=== PATIENT | male | born 1925 | race Caucasian/White ===

== ENCOUNTER 2016-11-24 12:48 | Inpatient (IN) ==
[2016-11-24] MEDS: Nitroglycerin 0.4 MG TAB.SUBL SL PRN ×2 (16:12→16:23)
--- NOTE | 2016-11-24 16:34 | Internal Med History&Physical ---
Date of Encounter: 11/24/16 Time of Encounter: 16:30 Assessment and Plan (1) Non-STEMI (non-ST elevated myocardial infarction) Current visit: Yes Status: Acute Diagnosis based on typical sudden onset precordial chest pain which initially improved with nitroglycerin however was recurrent and not completely relieved as well as borderline elevated troponin. We administered 2 sublingual nitroglycerin tablets at bedside and his blood pressure came down to the normal range. His chest pain has improved but it is not completely relieved. We will start heparin drip. Will obtain stat troponin and trend every 6 hours. Consult cardiology for possible need for heart catheterization tomorrow. Continue with aspirin and metoprolol and statin. Continue nitroglycerin sublingual. Will obtain echocardiogram. High risk for morbidity, mortality and complications due to IV heparin drip which requires frequent monitoring of blood coagulation parameters. (2) Essential hypertension Current visit: Yes Status: Acute Continue with atenolol. We will add hydralazine for uncontrolled hypertension. (3) Hyperlipidemia Current visit: Yes Status: Acute We will check lipid panel. Qualifiers: Hyperlipidemia type: unspecified Qualified Code(s): E78.5 - Hyperlipidemia , unspecified (4) BPH (benign prostatic hyperplasia) Current visit: Yes Status: Acute Continue finasteride. Qualifiers: Lower urinary tract symptom presence: symptoms absent Qualified Code(s): N40.0 - Benign prostatic hyperplasia without lower urinary tract symptoms (5) Chronic kidney disease, stage III (moderate) Current visit: Yes Status: Acute Per chart review baseline creatinine between 1.4 and 1.5 with GFR in the mid to high 40s. I will provide IV fluid hydration in anticipation of iodine contrast load tomorrow. Avoid nephrotoxins. Hold EITAN inhibitor and ARB for now due to use of contrast. 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 Pain started suddenly at 1:00 this morning, graded as 4/10 in intensity, aching, precordial, no irradiation. No aggravating or alleviating factors. Not associated with diaphoresis or shortness of breath or lightheadedness. Workup at [facility] revealed an elevated troponin of 0.04. The patient was transferred to us for further care. Past medical history: Essential hypertension Surgical history: Cystoscopy Family history: Both parents suffered with CAD in their 70s. 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 Past Med Surg Social Fam HX - Past Medical History Medical history: atrial fibrillation, hypertension Psychiatric history: no psych history - Social History Smoking Status: Never smoker Smokeless Tobacco Status: No Alcohol use: none Drug use: none - Family History Father Living Status: Mother Living Status: Internal Medicine - H&P: Meds Atenolol [Tenormin] 25 mg PO BID 07/05/16 [History] Aspirin Enteric Coated [Aspirin EC] 81 mg PO QAM 11/24/16 [History] Finasteride [Proscar] 5 mg PO QAM 11/24/16 [History] Lisinopril [Zestril] 40 mg PO QAM 11/24/16 [History] Lovastatin 80 mg PO QPM 11/24/16 [History] Nitroglycerin [Nitrostat] 0.4 mg SL Q5M PRN 11/24/16 [History] 3 Allergy/AdvReac Type Severity Reaction Status Date / Time No Known Allergies Allergy Verified 07/05/16 14:03 All Systems PM: A 10-system review of systems was performed and is negative for pertinent findings except as documented above in the HPI. - Constitutional Vitals: Temp Pulse Resp BP Pulse Ox 98.0 F 64 16 172/85 98 11/24/16 14:41 11/24/16 14:41 11/24/16 14:41 11/24/16 16:27 11/24/16 14:41 General appearance: Present: A&O X 3, no acute distress - Eye Eye exam: Present: PERRL, conjuntiva pink, sclera anicteric Pupils: Present: PERRL - Respiratory Respiratory exam: Present: CTAB. Absent: accessory muscle use, rales, rhonchi, wheezes - Cardiovascular Cardiovascular exam: Present: RRR, +S1, +S2. Absent: diastolic murmur, gallop, rubs, systolic murmur Additional comments: Pacemaker is palpated over the left upper chest - GI/Abdominal GI/Abdominal exam: Present: normal bowel sounds, soft, no peritoneal signs. Absent: distended, tenderness - Extremities Exam Extremities exam: Present: warm, radial pulses palpable and symmetrical. Absent : calf tenderness, cyanotic, pedal edema - Neurological Exam Neurological exam: Present: CN II-XII intact, oriented X3, no focal deficits. Absent: facial droop, speech deficit - Skin Skin exam: Present: dry, intact Internal Med - H&P Results - Labs Labs: Lab work from [facility] from 11/24/2016: Blood cell count 7.5, hemoglobin 14.5, platelet count 188. Chemistries sodium 143 potassium 4.2, chloride 107, CO2 25, BUN 24, creatinine 1.43 Troponin 0.04. Chest x-ray from [facility] done today: No acute process. - EKG Data -: EKG Interpreted by Myself (Ventricularly paced rhythm at 74 bpm)
[2016-11-24] MEDS ORDERED: Nitroglycerin 0.4 MG TAB.SUBL SL PRN (16:57)
[2016-11-24] MEDS ORDERED: *HR* HYDROcodone/Acet 5/325 mg TABLET PO PRN (16:58)
[2016-11-24] MEDS ORDERED: Acetaminophen 325 MG TABLET PO PRN (16:58)
[2016-11-24] MEDS ORDERED: *HR* Morphine 2 MG/ML SYRINGE IVP PRN (16:58)
[2016-11-24] MEDS ORDERED: Ondansetron 4 MG/2 ML VIAL IVP PRN (16:58)
[2016-11-24] MEDS ORDERED: Naloxone 0.4 MG/ML INJ IVP PRN (16:58)
[2016-11-24] MEDS ORDERED: Finasteride 5 MG TABLET PO SCH (17:00)
[2016-11-24] MEDS ORDERED: 0.9 % Sodium Chloride 1,000 ML IVC SCH (17:00)
[2016-11-24] MEDS ORDERED: *HR* Heparin 5,000 UNIT/ML VIAL IVP PRN ×2 (17:06)
[2016-11-24] MEDS ORDERED: *HR* Heparin 5,000 UNIT/ML VIAL IVP ONE (17:06)
[2016-11-24] MEDS ORDERED: Heparin 25,000 UNIT/500 ML D5W 25,000 UNIT/500 ML MLS IVC SCH (17:15)
[2016-11-24 18:24] LABS: Hematocrit 42.5 % (37.5-50.1); Hemoglobin 13.7 g/dL (12.9-16.9); Mean Corpuscular HGB Conc 32.2 g/dL (31.6-35.5); Mean Platelet Volume 10.5 fL (9.4-12.4); Platelet Count 177 K/mcL (140-400); Red Blood Count 4.57 M/mcL (4.19-5.50); Red Cell Distribution Width 12.9 % (11.5-14.5)
[2016-11-24 18:28] LABS: INR 1.1; Prothrombin Time 11.9 Seconds (9.4-12.1)
[2016-11-24 18:31] LABS: Activated Partial Thrombo Time 28.6 Seconds (26.0-36.0)
[2016-11-25 01:06] LABS: Basophils # 0.1 K/mcL (0.0-0.2); Basophils % 0.6 %; Eosinophils # 0.1 K/mcL (0.0-0.6); Eosinophils % 1.3 %; Hematocrit 41.1 % (37.5-50.1); Hemoglobin 13.4 g/dL (12.9-16.9); Immature Granulocytes % 0.5 % (0-4); Lymphocytes # 1.9 K/mcL (0.6-4.6); Lymphocytes % 23.2 %; Mean Corpuscular HGB Conc 32.6 g/dL (31.6-35.5); Mean Corpuscular Hemoglobin 30.5 pg (28.0-33.3); Mean Corpuscular Volume 93.6 fL (83.0-100.0); Mean Platelet Volume 10.8 fL (9.4-12.4); Monocytes # 0.7 K/mcL (0.0-1.3); Monocytes % 9.1 %; Neutrophils # 5.3 K/mcL (1.6-8.9); Platelet Count 166 K/mcL (140-400); Red Blood Count 4.39 M/mcL (4.19-5.50); Red Cell Distribution Width 12.8 % (11.5-14.5); Segmented Neutrophils % 65.3 %
[2016-11-25 01:18] LABS: BUN/Creatinine Ratio 16 (6-26); Blood Urea Nitrogen 21 mg/dL (8-26); Calcium 8.8 mg/dL (8.6-10.8); Carbon Dioxide 24 mEq/L (19-29); Chloride 110 mEq/L (98-109); Glucose 105 mg/dL (70-99); Magnesium 1.9 mg/dL (1.6-2.6); Osmolality,Calculated 301 (280-300); Potassium 4.4 mEq/L (3.5-4.5); Sodium 144 mEq/L (136-145); eGFR For African Americans > 60 (> 60); eGFR For Non-African Americans 51 (> 60)
[2016-11-25 01:28] LABS: Activated Partial Thrombo Time 153.3 Seconds (26.0-36.0)
[2016-11-25] MEDS ORDERED: Aspirin Enteric Coated 81 MG Tablet PO SCH (09:00)
--- NOTE | 2016-11-25 11:50 | Cardiology Consult Note ---
Date of Encounter: 11/25/16 Time of Encounter: 10:30 Assessment and Plan (1) Atypical chest pain Current Visit: Yes Status: Acute 89M with right sided, intermittent chest pain without radiation for the last 6 months. Equivocal troponin levels (0.05<0.04<0.04). EKG was independently read and consistent with electronic ventricular pacemaker without signs of ischemia. Previous Stress test in 2011 demonstrated stable coronary disease. Echo demonstrates EF = 60% with normal wall motion, and moderately calcified aortic valve leaflets, especially noncoronary cusp. Ischemic work-up is negative. We suspect chest discomfort likely secondary to GERD. No cardiac intervention is recommended at this time. Recommend discharging patient with Prilosec and follow up with Dr. Gooden, his pc tech. Cardiology is signing off. Thank you for the consult. (2) Essential hypertension Current Visit: No Status: Acute Patient's HTN is uncontrolled but stable ranging with systolic 150s-170s. He has been asymptomatic throughout admission. Follow-up with PCP outpatient. (3) Hyperlipidemia Current Visit: No Status: Acute Patient has history of hyperlipidemia. Continue with home meds. Follow-up with outpatient management. Qualifiers: Hyperlipidemia type: unspecified Qualified Code(s): E78.5 - Hyperlipidemia , unspecified Discussion w patient/family: The assessment and plan as outlined above was discussed with the patient and/or family members who expressed understanding and agreement. All questions were answered. Thank you for involving us in the care of your patient. Please call with any questions. History of Present Illness Consult date: 11/25/16 Consult reason: Atypical Chest pain with elevated troponin Chief complaint: Chest pain History of present illness: Mr. Bobo is a 89 year old male with PMH of HTN, previous stents x2 (2006), pacemaker (January 2010) who presents with intermittent chest pain for the last 6 months. He reports pain is on the right side of chest, does not radiate, and lasts for a few seconds at a time. The pain is pressure-like. He cannot recall anything that makes it better or worse. Has not taken any medication at home to treat the pain. Pain is 4/10 when it is present. He denies smoking, alcohol, or illicit drug. He exercises three times per week and does not experience CP or SOB with exertion. Past stress tests in 2011 demonstarted stable coronary disease. He presented to [facility] for the chest pain and was transferred to [place] due to elevated troponins. He denies fever, chills, lightheadedness, diaphoresis, SOB, cough, N/V/D/C, leg swelling. Past Med Surg Social Fam HX - Past Medical History Medical history: atrial fibrillation, hypertension Psychiatric history: no psych history - Social History Smoking Status: Never smoker Smokeless Tobacco Status: No Alcohol use: none Drug use: none - Family History Father Living Status: Mother Living Status: Medications and Allergies Atenolol [Tenormin] 25 mg PO BID 07/05/16 [History] Aspirin Enteric Coated [Aspirin EC] 81 mg PO QAM 11/24/16 [History] Finasteride [Proscar] 5 mg PO QAM 11/24/16 [History] Lisinopril [Zestril] 20 mg PO HS 11/24/16 [History] Lisinopril [Zestril] 40 mg PO QAM 11/24/16 [History] Lovastatin 80 mg PO QPM 11/24/16 [History] Nitroglycerin [Nitrostat] 0.4 mg SL Q5M PRN 11/24/16 [History] Omeprazole [PriLOSEC] 40 mg PO DAILY #30 cap 11/25/16 [Rx] 3 Allergy/AdvReac Type Severity Reaction Status Date / Time No Known Allergies Allergy Verified 07/05/16 14:03 All Systems Review: A 10-system review of systems was performed and is negative for pertinent findings except as documented above in the HPI. - Constitutional Constitutional: no chills, no fatigue, no headache(s), no night sweats - EENT Eyes: no blurred vision Nose, mouth and throat: no sore throat - Cardiovascular Cardiovascular: as per HPI, chest pain at rest, no dyspnea at rest, no dyspnea on exertion, no irregular heart rhythm, no lightheadedness, no palpitations, no syncope - Respiratory Respiratory: no cough, no dyspnea - Gastrointestinal Gastrointestinal: no abdominal pain, no constipation, no diarrhea - Genitourinary Genitourinary: no dysuria - Neurological Neurological: no abnormal speech, no syncope - Hematological/Lymphatic Hematologic/Lymphatic: no easy bleeding Physical Examination General: Conversant, No Apparent Distress HEENT: Atraumatic, Normocephaly, Mucus Membranes Moist Neck: No JVD, Normal carotid pulses Cardiac: Reg Rate and Rhythm, Normal S1 and S2, No Murmur Lungs: Normal Breath Sounds, No Wheeze, Rales, Rhonchi Neuro: Alert and responsive, No focal deficits noted Abdomen: Soft, Non-Tender Skin: No rashes noted on visualized skin Musculoskeletal: No Chest Wall Tenderness Extremities: No Clubbing, No Cyanosis, No Edema, Normal Pulses Results 11/25/16 00:33 11/25/16 00:33 Lab Results 11/24/16 11/24/16 11/24/16 17:57 17:57 17:57 WBC 7.5 Hgb 13.7 Hct 42.5 Plt Count 177 INR 1.1 APTT 28.6 Sodium Potassium Chloride Carbon Dioxide BUN Creatinine Glucose Calcium Magnesium Troponin I 0.04 H* B-Natriuretic Peptide 11/25/16 11/25/16 11/25/16 00:33 00:33 00:33 WBC 8.2 Hgb 13.4 Hct 41.1 Plt Count 166 INR APTT 153.3 H* D Sodium Potassium Chloride Carbon Dioxide BUN Creatinine Glucose Calcium Magnesium Troponin I 0.05 H* B-Natriuretic Peptide 11/25/16 11/25/16 11/25/16 00:33 00:33 08:40 WBC Hgb Hct Plt Count INR APTT 79.2 H Sodium 144 Potassium 4.4 Chloride 110 H Carbon Dioxide 24 BUN 21 Creatinine 1.33 H Glucose 105 H Calcium 8.8 Magnesium 1.9 Troponin I B-Natriuretic Peptide 187 H Consult Discharge Plan - Plan Additional Instructions: follow up with your PCP take prilosec everyday return to hospital should you develop chest pain, shortness of breathe, diaphoresis, nausea, vomiting Referrals: Oli Shoemaker MD [Primary Care Provider] - 12/01/16 3:30 pm Dami Gooden MD [Partnered Physician] - 02/05/17 9:00 am Prescriptions: Omeprazole [PriLOSEC] 40 mg PO DAILY #30 cap
[2016-11-25 12:13] VITALS: BP 179/76
--- NOTE | 2016-11-25 13:21 | Discharge Summary ---
<Huong Meek - Last Filed: 11/25/16 15:49> Date of Encounter: 11/25/16 Time of Encounter: 13:18 - Discharge Diagnosis (1) Non-STEMI (non-ST elevated myocardial infarction) Priority: Primary Status: Acute (2) Essential hypertension Priority: Secondary Status: Acute (3) Hyperlipidemia Priority: Secondary Status: Acute Qualifiers: Hyperlipidemia type: unspecified Qualified Code(s): E78.5 - Hyperlipidemia , unspecified (4) BPH (benign prostatic hyperplasia) Priority: Secondary Status: Acute Qualifiers: Lower urinary tract symptom presence: symptoms absent Qualified Code(s): N40.0 - Benign prostatic hyperplasia without lower urinary tract symptoms (5) Chronic kidney disease, stage III (moderate) Priority: Secondary Status: Acute - Discharge Medications Prescriptions: Omeprazole [PriLOSEC] 40 mg PO DAILY #30 cap Home Medications: Atenolol [Tenormin] 25 mg PO BID 07/05/16 [History] Aspirin Enteric Coated [Aspirin EC] 81 mg PO QAM 11/24/16 [History] Finasteride [Proscar] 5 mg PO QAM 11/24/16 [History] Lisinopril [Zestril] 20 mg PO HS 11/24/16 [History] Lisinopril [Zestril] 40 mg PO QAM 11/24/16 [History] Lovastatin 80 mg PO QPM 11/24/16 [History] Nitroglycerin [Nitrostat] 0.4 mg SL Q5M PRN 11/24/16 [History] Omeprazole [PriLOSEC] 40 mg PO DAILY #30 cap 11/25/16 [Rx] Allergies/Adverse Reactions: 3 Allergy/AdvReac Type Severity Reaction Status Date / Time No Known Allergies Allergy Verified 07/05/16 14:03 Procedures/tests Complete & Pending: Procedures Performed prior 72 hours Category Date Time Status EV echocardiogram Routine Y 11/25/16 17:04 Completed Date of admission: 11/24/16 16:58 Primary care physician: Oli Shoemaker MD Consults: 11/24/16 17:00 Consult to Physician [CONS] Routine Consulting Provider: Angel Wilson Reason for Consult: Acute myocardial infarction Time Notified: 17:01 Call Completed: Yes Discharging clinician: Phillip Brar - Patient Status Disposition: Home, Self-Care Condition: Good Functional capacity at discharge: independent ambulation Overall status at discharge: patient is back to baseline - Discharge Instructions Instructions: Omeprazole (By mouth), Chest Pain (DC) Follow Up With: Oli Shoemaker MD [Primary Care Provider] - 12/01/16 3:30 pm Dmai Gooden MD [Partnered Physician] - 02/05/17 9:00 am Additional Instructions: follow up with your PCP take prilosec everyday return to hospital should you develop chest pain, shortness of breathe, diaphoresis, nausea, vomiting - Diet and Activity Activity: resume usual activities as tolerated Diet: advance to your usual diet Hospital course: 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 Pain started suddenly at 1:00 this morning, graded as 4/10 in intensity, aching, precordial, no radiation. No aggravating or alleviating factors. Not associated with diaphoresis or shortness of breath or lightheadedness. Workup at [facility] revealed an elevated troponin of 0.04. The patient was transferred to us for further care. Past medical history:Essential hypertension. Surgical history: Cystoscopy. Family history: Both parents suffered with CAD in their 70s. 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 The patient was given nitroglycerin which improved chest pain however it was recurrent and not completely related. Patient requested cardiology consult. He was started on heparin drip and troponin was trended. Patients aspirin, metoprolol, and statin were continued. Echo demonstrates EF = 60% with normal wall motion, and moderately calcified aortic valve leaflets, especially noncoronary cusp. Ischemic work-up is negative. Cardiology stated that they believe that chest discomfort was likely secondary Gerd and that no cardiac catheterization is recommended at this time. The patient was discharged with Prilosec and follow-up with Dr. Gooden his manufacturing mechanic. The patient is alert and oriented times 3 with full capacity. He stated clearly understanding of the treatment plan and all questions were answered. He was instructed to return to the hospital should he develop fever, chills, chest pain , nausea, vomiting, abdominal pain, shortness of breath. - Time Spent with Patient Total time spent providing and/or coordinating discharge services: - Constitutional Vitals: Temp Pulse Resp BP Pulse Ox 97.5 F L 67 16 179/76 100 11/25/16 12:08 11/25/16 12:08 11/25/16 12:08 11/25/16 12:08 11/25/16 12:08 General appearance: Present: A&O X 3, no acute distress <Phillip Brar H - Last Filed: 11/25/16 16:49> Date of Encounter: 11/25/16 Procedures/tests Complete & Pending: Procedures Performed prior 72 hours Category Date Time Status EV echocardiogram Routine Y 11/25/16 17:04 Completed Date of admission: 11/24/16 16:58 Primary care physician: Oli Shoemaker MD Consults: 11/24/16 17:00 Consult to Physician [CONS] Routine Consulting Provider: Angel Wilson Reason for Consult: Acute myocardial infarction Time Notified: 17:01 Call Completed: Yes Hospital course: Mr. Bobo is a 89 year old male - Time Spent with Patient Total time spent providing and/or coordinating discharge services: - Constitutional Vitals: Temp Pulse Resp BP Pulse Ox 97.5 F L 67 16 179/76 100 11/25/16 12:08 11/25/16 12:08 11/25/16 12:08 11/25/16 12:08 11/25/16 12:08 - Attending Attestation Elevated troponins likely secondary to demand ischemia Time spent on this discharge 40 min I examined this patient and my medical decision-making was reviewed with the Resident Physician. I agree with the documented findings, disposition and treatment plan as described except to the extent set forth below.
[2016-11-28 15:29] LABS: Heparin anti-factor XA UFH 0.78 IU/mL (0.30-0.70)
== END 2016-11-25 14:28 | disposition home or self-care (01) | DRG 282 ==
LOC: 3BNU → SUATTDRO 16:58
PROVIDERS: ADMIT Internal Medicine; ATTEND Internal Medicine

== ENCOUNTER 2017-02-12 12:31 | Inpatient (IN) ==
[2017-02-12] MEDS ORDERED: Naloxone 0.4 MG/ML INJ IVP PRN (15:31)
[2017-02-12] MEDS ORDERED: Albuterol 2.5 MG/3 ML NEBULIZER IH PRN (15:31)
[2017-02-12] MEDS ORDERED: Acetaminophen 325 MG TABLET PO PRN (15:31)
[2017-02-12] MEDS ORDERED: *HR* Morphine 2 MG/ML SYRINGE IVP PRN (15:31)
[2017-02-12] MEDS: Levofloxacin 750 MG/150 ML 750 MG/150 ML BAG IVPB SCH (16:01)
[2017-02-12] MEDS: 0.9 % Sodium Chloride 1,000 ML IVC SCH (16:01)
--- NOTE | 2017-02-12 16:30 | Internal Med History&Physical ---
Date of Encounter: 02/12/17 Time of Encounter: 14:45 Assessment and Plan (1) Community acquired pneumonia Current visit: No Status: Acute 1. Blood cultures drawn at [facility]. 2. Continue Levaquin IV and albuterol aerosols PRN. 3. Will order Flu testing and treat if necessary. 4. Supportive measures and fever control. Qualifiers: Laterality: left Lung location: lower lobe of lung Qualified Code(s): J18.1 - Lobar pneumonia, unspecified organism (2) Dehydration Current visit: Yes Status: Acute 1. Luann IVF hydration. 2. Monitor I/o, daily weights, and hemodynamics. (3) Chronic kidney disease, stage III (moderate) Current visit: No Status: Acute 1. Monitor kidney function. 2. Consult nephrology if declines. 3. Appears to be at baseline presently. (4) Atypical chest pain Current visit: No Status: Acute 1. Will cycle troponins and EKG's. 2. Suspect this is due to pneumonia but will monitor cardiac status given EKG findings and history. (5) DVT prophylaxis Current visit: Yes Status: Acute 1. Heparin SQ. Internal Medicine - H&P: HPI Chief complaint: fevers; cough; SOB; chilss; chest pain Admitted From: Emergency Dept Plans for Post Hospital Care: Home History of present illness: Mr. Bobo is an 89 year old male who presents to the ER at [facility] with complaints of fevers, chills, cough, chest congestion, vague chest pain, fatigue and malaise. Symptoms started about 3-4 days ago and have progressively worsened. He came to ER at [facility] where he was found to have some mild hypoxemia and findings compatible with pneumonia. I received a call from the ER requesting transfer to [place] for ongoing care of this patient. I accepted the patient in transfer. Upon my assessment of the patient upon arrival, he appears ill but nontoxic. He appears dehydrated. He and his both confirm the above symptoms. He has had ill contacts with people with possible flulike symptoms. He did not receive a flu swab there. He already has blood cultures drawn and received his first dose of antibiotics. Regarding his chest pain, it sounds pleuritic and related to his pneumonia symptoms. However, he does have extensive cardiac history and has a pacemaker in place as well. We will cycle troponins and EKGs as well as treat him for his pneumonia. Patient denies any vomiting or diarrhea. However, he is extremely weak and deconditioned over the last 3-4 days compared to his baseline. Normally he is fairly active and can take care of himself. However, he has been dependent on his the last few days and is in need of 24 Hour care since the beginning of the week. Past Med Surg Social Fam HX - Past Medical History Attestation: Yes The following information was validated with the patient. Source: patient, old records reviewed, obtained from family Medical history: atrial fibrillation, coronary artery disease, GERD, hyperlipidemia, hypertension Psychiatric history: no psych history - Past Surgical History Surgical History: pacemaker/AICD - Social History Smoking Status: Never smoker Smokeless Tobacco Status: No Alcohol use: none Drug use: none Current living situation: Home, With Family Activity Level: Independent ambulation - Family History Father History Unknown: Yes Living Status: Mother History Unknown: Yes Living Status: Internal Medicine - H&P: Meds Atenolol [Tenormin] 25 mg PO BID 07/05/16 [History] Aspirin Enteric Coated [Aspirin EC] 81 mg PO QAM 11/24/16 [History] Finasteride [Proscar] 5 mg PO QAM 11/24/16 [History] Lisinopril [Zestril] 20 mg PO HS 11/24/16 [History] Lisinopril [Zestril] 40 mg PO QAM 11/24/16 [History] Lovastatin 60 mg PO QPM 11/24/16 [History] Nitroglycerin [Nitrostat] 0.4 mg SL Q5M PRN 11/24/16 [History] Omeprazole [PriLOSEC] 40 mg PO DAILY #30 cap 11/25/16 [Rx] 3 Allergy/AdvReac Type Severity Reaction Status Date / Time No Known Allergies Allergy Verified 07/05/16 14:03 - Constitutional Constitutional: chills, fever(s), no night sweats - EENT Eyes: no blurry vision, no change in vision Ears: no ear pain, no tinnitus Nose, mouth and throat: nasal congestion, sinus pressure, no post-nasal drip, no sinus pain, no sore throat - Cardiovascular Cardiovascular ROS IM: chest pain, dyspnea, no orthopnea, no paroxysmal nocturnal dyspnea - Respiratory Respiratory: cough, dyspnea, wheezing, chest congestion, excessive phlegm production, pain with cough, no hemoptysis - Gastrointestinal Gastrointestinal: no abdominal pain, no diarrhea, no hematemesis, no hematochezia, no melena, no nausea, no vomiting - Genitourinary Genitourinary ROS male: no dysuria, no flank pain, no hematuria - Musculoskeletal Musculoskeletal ROS IM: muscle weakness, no back pain, no muscle cramps, no myalgias - Integumentary Integumentary IM: no rash, no jaundice - Neurological Neurological ROS: no dizziness, no focal weakness, no frequent falls, no headache(s) - Psychiatric Psychiatric: no anxiety, no depression - Endocrine Endocrine IM: no polydipsia, no polyuria - Hematologic/Lymphatic Hematologic/Lymphatic: easy bruising, no lymphadenopathy - Allergic/Immunologic Allergic/Immunologic: no GI upset with certain foods - Constitutional General appearance: Present: cooperative, mild distress, A&O X 3, pleasant, no acute distress, answers questions appropriately Exam: looks dry, weak, ill, but non-toxic - Head Head exam: Present: atraumatic, normal inspection - Eye Eye exam: Present: EOMI, normal appearance, PERRL. Absent: scleral icterus Pupils: Present: normal accommodation - ENT ENT exam: Present: mucous membranes dry, normal exam, normal oropharynx Additional comments: congested nares and mild sinus pressure - Neck Neck exam general surgery: Present: full ROM, supple. Absent: lymphadenopathy, tenderness, nuchal rigidity - Respiratory Respiratory exam: Present: rales (predominantly left base), rhonchi. Absent: chest wall tenderness, CTAB, wheezes - Cardiovascular Cardiovascular exam: Present: RRR, +S1, +S2. Absent: diastolic murmur, irregular rhythm, JVD, systolic murmur - GI/Abdominal GI/Abdominal exam: Present: normal bowel sounds, soft. Absent: guarding, hepatomegaly, rebound, splenomegaly, tenderness - Extremities Exam Extremities exam: Present: full ROM, normal capillary refill, warm, radial pulses palpable and symmetrical. Absent: calf tenderness, joint swelling, tenderness - Back Exam Back exam: Present: normal inspection. Absent: CVA tenderness (L), CVA tenderness (R) - Neurological Exam Neurological exam: Present: alert, CN II-XII intact, oriented X3, no focal deficits, strengths equal and symetr throughout Additional comments: generalized weakness but no focal deficits - Psychiatric Psychiatric exam: Present: normal affect, normal mood - Skin Skin exam: Present: dry, warm. Absent: rash Internal Med - H&P Results - Labs Labs: I reviewed his labs from [facility] and include the following: WBC 9.4 Hemoglobin 12.3 Hematocrit 37.1 Platelet 134 Sodium 134 Potassium 4.0 Chloride 100 Bicarbonate 23 BUN 37 Creatinine 1.37 - EKG Data -: EKG Interpreted by Myself - EKG Data Prior EKG available for review: no EKG comments: 02/12/17 16:39 Atrial fib with lateral ST-T subtle depression concerning for possible ischemia - Diagnostic Studies Chest x-ray Status: image reviewed by me (suspect LLL infiltrate)
[2017-02-12] MEDS ORDERED: *HR* Heparin 5,000 UNIT/ML VIAL IVP PRN ×2 (17:06)
[2017-02-12] MEDS ORDERED: *HR* Heparin 5,000 UNIT/ML VIAL IVP ONE (17:06)
[2017-02-12] MEDS ORDERED: Heparin 25,000 UNIT/500 ML D5W 25,000 UNIT/500 ML BAG IVC SCH (17:15)
[2017-02-12 17:41] LABS: Hematocrit 38.2 % (37.5-50.1); Hemoglobin 12.3 g/dL (12.9-16.9); Mean Corpuscular HGB Conc 32.2 g/dL (31.6-35.5); Mean Corpuscular Hemoglobin 29.5 pg (28.0-33.3); Mean Corpuscular Volume 91.6 fL (83.0-100.0); Mean Platelet Volume 10.9 fL (9.4-12.4); Platelet Count 135 K/mcL (140-400); Red Blood Count 4.17 M/mcL (4.19-5.50); Red Cell Distribution Width 13.2 % (11.5-14.5)
[2017-02-12 17:51] LABS: INR 1.4; Prothrombin Time 15.3 Seconds (9.4-12.1)
[2017-02-12 17:54] LABS: Activated Partial Thrombo Time 27.5 Seconds (26.0-36.0)
[2017-02-12] MEDS ORDERED: *HR* Heparin 5,000 UNIT/ML VIAL SQ SCH (18:00)
[2017-02-12] MEDS: Lisinopril 20 MG TABLET PO SCH (20:58)
[2017-02-13 04:39] LABS: Basophils % 0.3 %; Eosinophils % 0.1 %; Hematocrit 35.9 % (37.5-50.1); Hemoglobin 11.6 g/dL (12.9-16.9); Immature Granulocytes % 0.5 % (0-4); Lymphocytes # 0.9 K/mcL (0.6-4.6); Lymphocytes % 12.1 %; Mean Corpuscular HGB Conc 32.3 g/dL (31.6-35.5); Mean Corpuscular Hemoglobin 29.5 pg (28.0-33.3); Mean Corpuscular Volume 91.3 fL (83.0-100.0); Mean Platelet Volume 11.6 fL (9.4-12.4); Monocytes % 13.9 %; Neutrophils # 5.5 K/mcL (1.6-8.9); Platelet Count 125 K/mcL (140-400); Red Blood Count 3.93 M/mcL (4.19-5.50); Segmented Neutrophils % 73.1 %
[2017-02-13 04:52] LABS: Alanine Aminotransferase 19 Units/L (7-52); Albumin 2.9 g/dL (3.5-5.7); Albumin/Globulin Ratio 1.3 (1.1-2.2); Alkaline Phosphatase 48 Units/L (34-104); Aspartate Amino Transferase 38 Units/L (13-39); BUN/Creatinine Ratio 30 (6-26); Bilirubin,Total 1.2 mg/dL (0.3-1.0); Blood Urea Nitrogen 34 mg/dL (8-23); Calcium 7.9 mg/dL (8.6-10.3); Carbon Dioxide 22 mEq/L (23-29); Chloride 107 mEq/L (98-107); Globulin 2.3 g/dL (2.4-3.5); Glucose 114 mg/dL (70-105); Magnesium 1.8 mg/dL (1.6-2.6); Osmolality,Calculated 292 (280-300); Potassium 3.7 mEq/L (3.5-5.1); Sodium 137 mEq/L (136-145); Total Protein 5.2 g/dL (6.4-8.9); eGFR For African Americans > 60 (> 60); eGFR For Non-African Americans > 60 (> 60)
[2017-02-13] MEDS: 0.9 % Sodium Chloride 1,000 ML IVC SCH ×2 (05:49→17:29)
[2017-02-13] MEDS: Aspirin Enteric Coated 81 MG Tablet PO SCH (09:29)
[2017-02-13] MEDS: Finasteride 5 MG TABLET PO SCH (09:31)
[2017-02-13] MEDS: Lisinopril 20 MG TABLET PO SCH ×2 (09:31→20:39)
--- NOTE | 2017-02-13 10:08 | Cardiology Consult Note ---
Date of Encounter: 02/13/17 Time of Encounter: 10:07 Assessment and Plan (1) Non-STEMI (non-ST elevated myocardial infarction) Current Visit: Yes Status: Acute Troponin 0.22, 0.18, 0.17. NSTEMI vs demand ischemia in the setting of hypoxia and CKD. SPO2 in the 80;s on presentation to ED. EKG also shows ST depression and new T wave inversion in the inferior and anteriolateral leads. Difficult to assess, but appears to be new. Most recent EKG show ventricular pacing. EKG in 2011 shows atrial pacing with no ST changes. Findings reviewed with patient. LHC vs medical management discussed. Due to advanced age he declines LHC and prefers medical therapy. He denies chest pain. Check TTE. Continue heparin gtt for 48 hours. Continue asa, statin, aceI, and bb. NTG SL PRN. (2) CAD (coronary artery disease) Current Visit: Yes Status: Chronic H/o PCI in 2006. LHC in 2011 showed patent stents. 40-50% stenosis in the mid circumflex artery. Minimal disease otherwise. Stress test 2014 was negative for ischemia. TTE 11/25/16-LVEF 60%. Normal LV chamber size and function. Mild concentric left ventricular hypertrophy. Atypical septal motion consistent with paced rhythm. Indeterminate diastolic function. Normal right ventricular structure and function. Moderately calcified aortic valve leaflets, especially the noncoronary cusp. No significant valvular dysfunction. No evidence of pulmonary hypertension. A device lead was visualized in the right atrium and right ventricle. Continue asa, statin, and bb. Qualifiers: Coronary Disease-Associated Artery/Lesion type: [place] artery [place] vs. transplanted heart: [place] heart Associated angina: without angina Qualified Code(s): I25.10 - Atherosclerotic heart disease of [place] coronary artery without angina pectoris (3) Atrial fibrillation Current Visit: No Status: Acute H/o of atrial fibrillation. Appears to be chronic. Currently rate controlled. HR in the 70's. Not on AC due to history of GI bleed. Last PPM check showed AF since . Continue to monitor. Qualifiers: Atrial fibrillation type: unspecified Qualified Code(s): I48.91 - Unspecified atrial fibrillation Discussion w patient/family: The assessment and plan as outlined above was discussed with the patient and/or family members who expressed understanding and agreement. All questions were answered. Thank you for involving us in the care of your patient. Please call with any questions. History of Present Illness Consult date: 02/14/16 Requesting physician: Steve Hopkins Consult reason: Troponin elevation Chief complaint: Cold like symptoms for 3 days History of present illness: Mr. Bobo is a 89 year old male with a history of CAD s/p PCI in 2006, PPM, atrial fibrillation, and GI bleed. He follows with Dr. Gooden with [facility]. he presented to [facility] ER with the C/o cough, nasal congestion , fever, and chills. He was also documented to have AMS and vague chest pain. He denies chest pain on my exam. Denies orthopnea, PND, or edema. Laboratory work-up revealed elevated troponin at 0.22, 0.18, 0.17. EKG showed Sr with ST changes concerning for ST changes concerning for inferior and anteriolateral ischemia. New compared to previous EKG. Difficult to assess due to previous EKG with paced rhythm. No recent EKG where he is not paced. Cardiology consulted for further evaluation. He reports doing cardio exercises 30 min a day 3 days a week without chest pain or SOB. Past Med Surg Social Fam HX - Past Medical History Medical history: atrial fibrillation, coronary artery disease, GERD, hyperlipidemia, hypertension Psychiatric history: no psych history - Past Surgical History Surgical History: pacemaker/AICD - Social History Smoking Status: Never smoker Smokeless Tobacco Status: No Alcohol use: none Drug use: none - Family History Father History Unknown: Yes Living Status: Mother History Unknown: Yes Living Status: Medications and Allergies Atenolol [Tenormin] 25 mg PO BID 07/05/16 [History] Aspirin Enteric Coated [Aspirin EC] 81 mg PO QAM 11/24/16 [History] Finasteride [Proscar] 5 mg PO QAM 11/24/16 [History] Lisinopril [Zestril] 20 mg PO QPM 11/24/16 [History] Lisinopril [Zestril] 40 mg PO QAM 11/24/16 [History] Lovastatin 60 mg PO QPM 11/24/16 [History] Nitroglycerin [Nitrostat] 0.4 mg SL Q5M PRN 11/24/16 [History] Omeprazole [PriLOSEC] 40 mg PO DAILY #30 cap 11/25/16 [Rx] Buspirone HCl [Buspar] 5 mg PO BID 02/12/17 [History] 3 Allergy/AdvReac Type Severity Reaction Status Date / Time No Known Allergies Allergy Verified 07/05/16 14:03 All Systems Review: A 10-system review of systems was performed and is negative for pertinent findings except as documented above in the HPI. Physical Examination Vital Signs, Last 4 Hours Temp Pulse Resp BP Pulse Ox 02/13/17 09:21 95 02/13/17 06:55 97.8 F 70 18 147/76 95 General: Conversant, No Apparent Distress HEENT: Atraumatic, Normocephaly, Mucus Membranes Moist Neck: No JVD, Normal carotid pulses Cardiac: Other (irregular) Lungs: Normal Breath Sounds, No Wheeze, Rales, Rhonchi Neuro: Alert and responsive, No focal deficits noted Abdomen: Soft, Non-Tender Skin: No rashes noted on visualized skin Musculoskeletal: No Chest Wall Tenderness Extremities: No Clubbing, No Cyanosis, No Edema, Normal Pulses Results 02/13/17 03:47 02/13/17 03:47 Lab Results 02/12/17 02/12/17 02/12/17 15:49 17:32 17:32 WBC 7.2 Hgb 12.3 L Hct 38.2 Plt Count 135 L INR 1.4 APTT 27.5 Sodium Potassium Chloride Carbon Dioxide BUN Creatinine Glucose Calcium Magnesium Total Bilirubin AST ALT Alkaline Phosphatase Troponin I 0.22 H* 02/12/17 02/13/17 02/13/17 21:36 00:09 03:47 WBC Hgb Hct Plt Count INR APTT 86.9 H D Sodium Potassium Chloride Carbon Dioxide BUN Creatinine Glucose Calcium Magnesium Total Bilirubin AST ALT Alkaline Phosphatase Troponin I 0.18 H* 0.17 H* 02/13/17 02/13/17 02/13/17 03:47 03:47 08:31 WBC 7.5 Hgb 11.6 L Hct 35.9 L Plt Count 125 L INR APTT 74.7 H Sodium 137 Potassium 3.7 Chloride 107 Carbon Dioxide 22 L BUN 34 H Creatinine 1.12 Glucose 114 H Calcium 7.9 L Magnesium 1.8 Total Bilirubin 1.2 H AST 38 ALT 19 Alkaline Phosphatase 48 Troponin I - Imaging and Cardiology Echo: report reviewed - EKG Interpretation EKG results cardiology: personally reviewed Consult Discharge Plan - Plan Referrals: Oli Shoemaker MD [Primary Care Provider] -
--- NOTE | 2017-02-13 19:10 | Internal Med Progress Note ---
Date of Encounter: 02/13/17 Time of Encounter: 11:00 - Assessment and plan (1) Pneumonia Current Visit: Yes Status: Acute Assessment and plan: -We will continue treatment for left lower lobe pneumonia with IV Levaquin Qualifiers: Laterality: left Lung location: lower lobe of lung Qualified Code(s): J18.1 - Lobar pneumonia, unspecified organism (2) Dehydration Current Visit: Yes Status: Acute Assessment and plan: -Continue IV fluids (3) Essential hypertension Current Visit: No Status: Acute Assessment and plan: -Continue home medications (4) Hyperlipidemia Current Visit: No Status: Acute Assessment and plan: -Continue home medications Qualifiers: Hyperlipidemia type: unspecified Qualified Code(s): E78.5 - Hyperlipidemia , unspecified (5) DVT prophylaxis Current Visit: Yes Status: Acute Assessment and plan: -Subcutaneous heparin (6) Fall Current Visit: Yes Status: Acute Assessment and plan: -Recent found down in room -Imaging/workup negative Qualifiers: Encounter type: initial encounter Qualified Code(s): W19.XXXA - Unspecified fall, initial encounter - Subjective Interval history: Patient was alert and coherent earlier today However patient was found down in his room Imaging/workup negative Continue to treat community-acquired pneumonia and IV fluids for dehydration - Constitutional Vitals: Temp Pulse Resp BP Pulse Ox 97.5 F L 62 18 156/78 94 02/13/17 16:14 02/13/17 16:14 02/13/17 16:14 02/13/17 16:14 02/13/17 16:14 General appearance: Present: cooperative, mild distress, A&O X 3, pleasant, no acute distress, answers questions appropriately - Respiratory Respiratory exam: Present: CTAB. Absent: accessory muscle use, rales, rhonchi, wheezes Internal Medicine: Result - Labs CBC & Chem 7: 02/13/17 03:47 02/13/17 03:47 Labs: Short CBC 02/13/17 Range/Units 03:47 WBC 7.5 (4.3-11.1) K/mcL Hgb 11.6 L (12.9-16.9) g/dL Hct 35.9 L (37.5-50.1) % Plt Count 125 L (140-400) K/mcL Neutrophils # 5.5 (1.6-8.9) K/mcL BMP 02/13/17 03:47 Sodium 137 Potassium 3.7 Chloride 107 Carbon Dioxide 22 L BUN 34 H Creatinine 1.12 Glucose 114 H Calcium 7.9 L Cardiac Enzymes 02/12/17 02/13/17 Range/Units 21:36 03:47 Troponin I 0.18 H* 0.17 H* (< 0.04) ng/mL Liver Function 02/13/17 Range/Units 03:47 Total Bilirubin 1.2 H (0.3-1.0) mg/dL AST 38 (13-39) Units/L ALT 19 (7-52) Units/L Alkaline Phosphatase 48 (34-104) Units/L Albumin 2.9 L (3.5-5.7) g/dL - ABG Interpretation ABG results: PT/INR, D-dimer PT 15.3 Seconds (9.4-12.1) H 02/12/17 17:32 - Impressions Impressions Echocardiogram Limited Views 02/13/17 07:30 Impressions: LVEF 55-60%. Normal LV chamber size, wall thickness and function. Left Ventricular Wall Motion: Rest Echo Findings All wall segments showed normal motion. Findings: Study Quality * Technically adequate exam. ECG Findings * Atrial fibrillation. Left Ventricle * LVEF 55-60%. * Normal LV chamber size, wall thickness and function. Right Ventricle * Normal right ventricular structure and function. Device lead * A device lead was visualized in the right atrium and right ventricle. Head CT 02/13/17 14:48 IMPRESSION: No acute intracranial abnormality. Mild to moderate parenchymal volume loss. Mild to moderate chronic microvascular disease. Sinus mucosal disease. D/ / Mik Moreno MD / Mik Moreno MD Interpreting Provider: Mik Moreno MD Lumbar Spine X-Ray 02/13/17 14:48 IMPRESSION: 1. Normal thoracic spine alignment. Mild T12 anterior wedge configuration which is likely chronic in nature. If there is clinical concern an MRI would be helpful in determining acuity. 2. Normal lumbar spine alignment with multilevel degenerative changes. No acute fracture. D/ / 02/13/2017 15:40:45 Ronald Leggett MD / greta Interpreting Provider: Ronald Leggtet MD Thoracic Spine X-Ray 02/13/17 14:49 IMPRESSION: 1. Normal thoracic spine alignment. Mild T12 anterior wedge configuration which is likely chronic in nature. If there is clinical concern an MRI would be helpful in determining acuity. 2. Normal lumbar spine alignment with multilevel degenerative changes. No acute fracture. D/ / 02/13/2017 15:40:45 Ronald Leggett MD / greta Interpreting Provider: Ronald Leggett MD Cervical Spine CT 02/13/17 14:55 IMPRESSION: No acute abnormality of the cervical spine. 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 Partial visualization of soft tissue opacity in the left upper lobe measuring at least 18 x [address] recommended for further evaluation. D/ / Cotrez Mary MD / Cortez Mary MD Interpreting Provider: Cortez Mary MD Consult Discharge Plan - Plan Referrals: Oli Shoemaker MD [Primary Care Provider] -
[2017-02-13] MEDS: hydrOXYzine pamoate 25 MG CAPSULE PO PRN (20:38)
[2017-02-14] MEDS: *HR* Heparin 5,000 UNIT/ML VIAL SQ SCH ×2 (06:44→17:27)
[2017-02-14 08:30] LABS: Basophils % 0.5 %; Eosinophils # 0.1 K/mcL (0.0-0.6); Hematocrit 35.7 % (37.5-50.1); Hemoglobin 11.6 g/dL (12.9-16.9); Immature Granulocytes % 0.4 % (0-4); Lymphocytes % 18.3 %; Mean Corpuscular HGB Conc 32.5 g/dL (31.6-35.5); Mean Corpuscular Hemoglobin 30.1 pg (28.0-33.3); Mean Corpuscular Volume 92.7 fL (83.0-100.0); Mean Platelet Volume 11.3 fL (9.4-12.4); Monocytes # 0.8 K/mcL (0.0-1.3); Monocytes % 13.8 %; Neutrophils # 3.6 K/mcL (1.6-8.9); Platelet Count 142 K/mcL (140-400); Red Blood Count 3.85 M/mcL (4.19-5.50); Red Cell Distribution Width 13.2 % (11.5-14.5)
[2017-02-14] MEDS: Finasteride 5 MG TABLET PO SCH (08:44)
[2017-02-14] MEDS: Lisinopril 20 MG TABLET PO SCH ×2 (08:44→22:11)
[2017-02-14] MEDS: Aspirin Enteric Coated 81 MG Tablet PO SCH (08:44)
[2017-02-14 09:40] LABS: BUN/Creatinine Ratio 20 (6-26); Blood Urea Nitrogen 23 mg/dL (8-23); Calcium 8.1 mg/dL (8.6-10.3); Carbon Dioxide 26 mEq/L (23-29); Chloride 112 mEq/L (98-107); Glucose 112 mg/dL (70-105); Osmolality,Calculated 302 (280-300); Potassium 3.7 mEq/L (3.5-5.1); Sodium 144 mEq/L (136-145); eGFR For African Americans > 60 (> 60); eGFR For Non-African Americans > 60 (> 60)
[2017-02-14] MEDS: 0.9 % Sodium Chloride 1,000 ML IVC SCH (15:07)
[2017-02-14] MEDS: Azithromycin 500 MG in D5% in Water 250 ML IVPB SCH (17:27)
--- NOTE | 2017-02-14 19:08 | Internal Med Progress Note ---
Date of Encounter: 02/15/17 Time of Encounter: 11:00 - Assessment and plan (1) Pneumonia Current Visit: Yes Status: Acute Assessment and plan: -We will continue treatment for left lower lobe pneumonia with IV Levaquin Qualifiers: Laterality: left Lung location: lower lobe of lung Qualified Code(s): J18.1 - Lobar pneumonia, unspecified organism (2) Dehydration Current Visit: Yes Status: Acute Assessment and plan: -Continue IV fluids (3) Essential hypertension Current Visit: No Status: Acute Assessment and plan: -Continue home medications (4) Hyperlipidemia Current Visit: No Status: Acute Assessment and plan: -Continue home medications Qualifiers: Hyperlipidemia type: unspecified Qualified Code(s): E78.5 - Hyperlipidemia , unspecified (5) DVT prophylaxis Current Visit: Yes Status: Acute Assessment and plan: -Subcutaneous heparin (6) Fall Current Visit: Yes Status: Acute Qualifiers: Encounter type: initial encounter Qualified Code(s): W19.XXXA - Unspecified fall, initial encounter - Subjective Interval history: Patient was alert and coherent earlier today However patient was found down in his room Imaging/workup negative Continue to treat community-acquired pneumonia and IV fluids for dehydration - Constitutional Vitals: Temp Pulse Resp BP Pulse Ox 97.7 F 67 19 159/75 97 02/14/17 17:14 02/14/17 17:14 02/14/17 17:14 02/14/17 17:14 02/14/17 17:14 General appearance: Present: cooperative, mild distress, A&O X 3, pleasant, no acute distress, answers questions appropriately - Respiratory Respiratory exam: Present: CTAB. Absent: accessory muscle use, rales, rhonchi, wheezes - Cardiovascular Cardiovascular exam: Present: RRR, +S1, +S2. Absent: diastolic murmur, gallop, rubs, systolic murmur Internal Medicine: Result - Labs CBC & Chem 7: 02/14/17 08:01 02/14/17 08:01 Labs: Short CBC 02/14/17 Range/Units 08:01 WBC 5.5 (4.3-11.1) K/mcL Hgb 11.6 L (12.9-16.9) g/dL Hct 35.7 L (37.5-50.1) % Plt Count 142 (140-400) K/mcL Neutrophils # 3.6 (1.6-8.9) K/mcL BMP 02/14/17 08:01 Sodium 144 Potassium 3.7 Chloride 112 H Carbon Dioxide 26 BUN 23 Creatinine 1.13 Glucose 112 H Calcium 8.1 L - ABG Interpretation ABG results: PT/INR, D-dimer PT 15.3 Seconds (9.4-12.1) H 02/12/17 17:32 Consult Discharge Plan - Plan Referrals: Oli Shoemaker MD [Primary Care Provider] -
[2017-02-14] MEDS: hydrOXYzine pamoate 25 MG CAPSULE PO PRN (23:00)
[2017-02-15] MEDS: *HR* Heparin 5,000 UNIT/ML VIAL SQ SCH ×2 (06:12→17:58)
[2017-02-15 08:45] LABS: Basophils % 0.3 %; Eosinophils # 0.3 K/mcL (0.0-0.6); Eosinophils % 5.3 %; Hematocrit 36.5 % (37.5-50.1); Hemoglobin 11.8 g/dL (12.9-16.9); Immature Granulocytes % 0.5 % (0-4); Immature Platelets 3.5 % (1.1-6.1); Lymphocytes # 1.3 K/mcL (0.6-4.6); Lymphocytes % 22.2 %; Mean Corpuscular HGB Conc 32.3 g/dL (31.6-35.5); Mean Corpuscular Hemoglobin 29.9 pg (28.0-33.3); Mean Corpuscular Volume 92.4 fL (83.0-100.0); Mean Platelet Volume 10.6 fL (9.4-12.4); Monocytes # 0.6 K/mcL (0.0-1.3); Monocytes % 10.8 %; Neutrophils # 3.6 K/mcL (1.6-8.9); Platelet Count 165 K/mcL (140-400); Red Blood Count 3.95 M/mcL (4.19-5.50); Red Cell Distribution Width 12.9 % (11.5-14.5); Segmented Neutrophils % 60.9 %
[2017-02-15 08:57] LABS: BUN/Creatinine Ratio 23 (6-26); Blood Urea Nitrogen 24 mg/dL (8-23); Calcium 8.3 mg/dL (8.6-10.3); Carbon Dioxide 27 mEq/L (23-29); Chloride 113 mEq/L (98-107); Glucose 117 mg/dL (70-105); Osmolality,Calculated 303 (280-300); Potassium 3.6 mEq/L (3.5-5.1); Sodium 144 mEq/L (136-145); eGFR For African Americans > 60 (> 60); eGFR For Non-African Americans > 60 (> 60)
[2017-02-15] MEDS: Aspirin Enteric Coated 81 MG Tablet PO SCH (10:20)
[2017-02-15] MEDS: Finasteride 5 MG TABLET PO SCH (10:20)
[2017-02-15] MEDS: Lisinopril 20 MG TABLET PO SCH ×2 (10:20→22:01)
[2017-02-15] MEDS: Azithromycin 500 MG in D5% in Water 250 ML IVPB SCH (18:00)
--- NOTE | 2017-02-15 19:29 | Internal Med Progress Note ---
Date of Encounter: 02/16/17 Time of Encounter: 11:00 - Assessment and plan (1) Pneumonia Current Visit: Yes Status: Acute Assessment and plan: -We will continue treatment for left lower lobe pneumonia with IV azithromycin Qualifiers: Laterality: left Lung location: lower lobe of lung Qualified Code(s): B59 - Pneumocystosis (2) Dehydration Current Visit: Yes Status: Resolved Assessment and plan: -Resolved; IV fluids have been discontinued. (3) Essential hypertension Current Visit: No Status: Acute Assessment and plan: -Continue home medications (4) Hyperlipidemia Current Visit: No Status: Acute Assessment and plan: -Continue home medications Qualifiers: Hyperlipidemia type: unspecified Qualified Code(s): E78.5 - Hyperlipidemia , unspecified (5) Fall Current Visit: Yes Status: Acute Assessment and plan: -Physical therapy recommendations for custodial facility for stroke rehabilitation Qualifiers: Encounter type: initial encounter Qualified Code(s): W19.XXXA - Unspecified fall, initial encounter (6) DVT prophylaxis Current Visit: Yes Status: Acute Assessment and plan: -Subcutaneous heparin - Subjective Interval history: Patient continues to be alert and coherent Continue to treat community-acquired pneumonia Due to fall during hospital stay, patient will be placed at custodial facility for strengthening rehabilitation and awaiting bed - Constitutional Vitals: Temp Pulse Resp BP Pulse Ox 97.6 F 62 16 156/81 98 02/15/17 18:52 02/15/17 18:52 02/15/17 18:52 02/15/17 18:52 02/15/17 18:52 General appearance: Present: cooperative, mild distress, A&O X 3, pleasant, no acute distress, answers questions appropriately - Respiratory Respiratory exam: Present: CTAB. Absent: accessory muscle use, rales, rhonchi, wheezes - Cardiovascular Cardiovascular exam: Present: RRR, +S1, +S2. Absent: diastolic murmur, gallop, rubs, systolic murmur Internal Medicine: Result - Labs CBC & Chem 7: 02/15/17 08:29 02/15/17 08:29 Labs: Short CBC 02/15/17 Range/Units 08:29 WBC 5.9 (4.3-11.1) K/mcL Hgb 11.8 L (12.9-16.9) g/dL Hct 36.5 L (37.5-50.1) % Plt Count 165 (140-400) K/mcL Neutrophils # 3.6 (1.6-8.9) K/mcL BMP 02/15/17 08:29 Sodium 144 Potassium 3.6 Chloride 113 H Carbon Dioxide 27 BUN 24 H Creatinine 1.05 Glucose 117 H Calcium 8.3 L - ABG Interpretation ABG results: PT/INR, D-dimer PT 15.3 Seconds (9.4-12.1) H 02/12/17 17:32 Consult Discharge Plan - Plan Referrals: Oil Shoemaker MD [Primary Care Provider] -
[2017-02-15] MEDS: hydrOXYzine pamoate 25 MG CAPSULE PO PRN (22:01)
[2017-02-16] MEDS: Levofloxacin 750 MG/150 ML 750 MG/150 ML BAG IVPB SCH (04:09)
[2017-02-16] MEDS: *HR* Heparin 5,000 UNIT/ML VIAL SQ SCH (06:24)
[2017-02-16 08:11] LABS: Basophils % 0.4 %; Eosinophils # 0.4 K/mcL (0.0-0.6); Eosinophils % 5.3 %; Hematocrit 37.7 % (37.5-50.1); Hemoglobin 12.2 g/dL (12.9-16.9); Immature Granulocytes % 0.6 % (0-4); Lymphocytes # 1.5 K/mcL (0.6-4.6); Mean Corpuscular HGB Conc 32.4 g/dL (31.6-35.5); Mean Corpuscular Hemoglobin 29.8 pg (28.0-33.3); Mean Corpuscular Volume 92.2 fL (83.0-100.0); Mean Platelet Volume 10.4 fL (9.4-12.4); Monocytes # 0.6 K/mcL (0.0-1.3); Monocytes % 8.5 %; Neutrophils # 4.5 K/mcL (1.6-8.9); Platelet Count 177 K/mcL (140-400); Red Blood Count 4.09 M/mcL (4.19-5.50); Red Cell Distribution Width 12.8 % (11.5-14.5); Segmented Neutrophils % 64.2 %
[2017-02-16 08:12] LABS: BUN/Creatinine Ratio 22 (6-26); Blood Urea Nitrogen 24 mg/dL (8-23); Calcium 8.3 mg/dL (8.6-10.3); Carbon Dioxide 26 mEq/L (23-29); Chloride 112 mEq/L (98-107); Glucose 122 mg/dL (70-105); Osmolality,Calculated 301 (280-300); Potassium 3.8 mEq/L (3.5-5.1); Sodium 143 mEq/L (136-145); eGFR For African Americans > 60 (> 60); eGFR For Non-African Americans > 60 (> 60)
[2017-02-16] MEDS: Finasteride 5 MG TABLET PO SCH (09:05)
[2017-02-16] MEDS: Aspirin Enteric Coated 81 MG Tablet PO SCH (09:05)
[2017-02-16] MEDS: Lisinopril 20 MG TABLET PO SCH (09:06)
--- NOTE | 2017-02-16 10:09 | Electrocardiograph Report ---
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
--- NOTE | 2017-02-16 10:09 | Electrocardiograph Report ---
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
--- NOTE | 2017-02-16 15:55 | Discharge Summary ---
Date of Encounter: 02/16/17 Time of Encounter: 11:00 - Discharge Diagnosis (1) Pneumonia Priority: Primary Status: Acute Qualifiers: Laterality: left Lung location: lower lobe of lung Qualified Code(s): J18.1 - Lobar pneumonia, unspecified organism (2) Dehydration Priority: Secondary Status: Resolved (3) Essential hypertension Priority: Secondary Status: Acute (4) Hyperlipidemia Priority: Secondary Status: Acute Qualifiers: Hyperlipidemia type: unspecified Qualified Code(s): E78.5 - Hyperlipidemia , unspecified (5) Fall Priority: Secondary Status: Acute Qualifiers: Encounter type: initial encounter Qualified Code(s): W19.XXXA - Unspecified fall, initial encounter - Discharge Medications Prescriptions: Azithromycin [Zithromax] 500 mg PO Q24H #6 tablet Home Medications: Atenolol [Tenormin] 25 mg PO BID 07/05/16 [History] Aspirin Enteric Coated [Aspirin EC] 81 mg PO QAM 11/24/16 [History] Finasteride [Proscar] 5 mg PO QAM 11/24/16 [History] Lisinopril [Zestril] 20 mg PO QPM 11/24/16 [History] Lisinopril [Zestril] 40 mg PO QAM 11/24/16 [History] Lovastatin 60 mg PO QPM 11/24/16 [History] Nitroglycerin [Nitrostat] 0.4 mg SL Q5M PRN 11/24/16 [History] Omeprazole [PriLOSEC] 40 mg PO DAILY #30 cap 11/25/16 [Rx] Buspirone HCl [Buspar] 5 mg PO BID 02/12/17 [History] Azithromycin [Zithromax] 500 mg PO Q24H #6 tablet 02/16/17 [Rx] Allergies/Adverse Reactions: 3 Allergy/AdvReac Type Severity Reaction Status Date / Time No Known Allergies Allergy Verified 07/05/16 14:03 Procedures/tests Complete & Pending: Procedures Performed prior 72 hours Category Date Time Status CT cervical spine wo con [CT] Stat Cat Scan 02/13/17 14:55 Completed EKG [ECG 12 lead ECG] [ECG] Stat Y 02/13/17 15:39 Completed Date of admission: 02/12/17 15:31 Primary care physician: Oli Shoemaker MD Consults: 02/13/17 17:13 Consult to Occupational Therapy [CONS] Routine Comment: Evaluate, develop and implement POC Reason for Consult: Patient had fall at hospital 02/13/2017 Consult to Physical Therapy [CONS] Routine Comment: Evaluate, develop and implement POC Reason for Consult: Patient had fall at hospital 02/13/2017 02/15/17 19:33 Consult to Spiral Tube Winder Helper [CONS] Routine Reason for SW Consult: PT/OT recommends inpatient rehab, pt would like to go to [facility], [facility] or [facility] (in that order of preference) upon discharge. Physician expects patient to discharge Thursday. - Patient Status Disposition: Transfer SNF - Discharge Instructions Follow Up With: Oli Shoemaker MD [Primary Care Provider] - Hospital course: Patient is an 89-year-old male with past medical history significant for coronary arterial disease with pace maker/AICD, hypertension, hyperlipidemia and some memory loss who presents to the ER on 02/12/17 due to fever/chills/cough. Patient went to ER at [place] where he was found to have some mild hypoxemia and findings compatible with pneumonia. He was then transferred to [facility] [place] for ongoing care. During patients hospital stay, his symptoms resolved with treatment of community-acquired pneumonia with IV antibiotics. He also had a fall during his hospital stay but imaging was negative. Due to patients fall, physical therapy was consulted with recommendations for long term facility for strengthening and conditioning. He will be discharged to long term facility to continue a 3 day course of azithromycin. - Time Spent with Patient Total time spent providing and/or coordinating discharge services: Less than 30 minutes - Constitutional Vitals: Temp Pulse Resp BP Pulse Ox 97.3 F L 60 17 145/69 96 02/16/17 11:00 02/16/17 11:00 02/16/17 11:00 02/16/17 11:02/16/17 11:00 General appearance: Present: cooperative, mild distress, A&O X 3, pleasant, no acute distress, answers questions appropriately - Respiratory Respiratory exam: Present: CTAB. Absent: accessory muscle use, rales, rhonchi, wheezes - Cardiovascular Cardiovascular exam: Present: RRR, +S1, +S2. Absent: diastolic murmur, gallop, rubs, systolic murmur
[2017-02-16 15:57] VITALS: BP 161/95
--- NOTE | 2017-02-16 15:57 | Physician Discharge Referral ---
ExtendedCare Referral Info Institutional Level of Care: Skilled - Diagnosis (1) Pneumonia Status: Acute (2) Dehydration Status: Resolved (3) Essential hypertension Status: Acute (4) Hyperlipidemia Status: Acute (5) Fall Status: Acute - Transfer Medications Prescriptions: Azithromycin [Zithromax] 500 mg PO Q24H #6 tablet Home Medications: Atenolol [Tenormin] 25 mg PO BID 07/05/16 [History] Aspirin Enteric Coated [Aspirin EC] 81 mg PO QAM 11/24/16 [History] Finasteride [Proscar] 5 mg PO QAM 11/24/16 [History] Lisinopril [Zestril] 20 mg PO QPM 11/24/16 [History] Lisinopril [Zestril] 40 mg PO QAM 11/24/16 [History] Lovastatin 60 mg PO QPM 11/24/16 [History] Nitroglycerin [Nitrostat] 0.4 mg SL Q5M PRN 11/24/16 [History] Omeprazole [PriLOSEC] 40 mg PO DAILY #30 cap 11/25/16 [Rx] Buspirone HCl [Buspar] 5 mg PO BID 02/12/17 [History] Azithromycin [Zithromax] 500 mg PO Q24H #6 tablet 02/16/17 [Rx] Allergies/Adverse Reactions: 3 Allergy/AdvReac Type Severity Reaction Status Date / Time No Known Allergies Allergy Verified 07/05/16 14:03 - Respiratory Orders Smoking Cessation: Smoking cessation has been advised. For more information, call the [place] Tobacco Quit Line at 6-676-ZYNU-NOW. CERTIFICATION: I certify that the transfer of the above named patient to an Extended Care Facility is necessary for the continuing treatment of the diagnosis listed. The above information is true and accurate reflection of patient's current condition. Confidential - Redisclosure prohibited without a patient's written consent.
[2017-02-16] MEDS ORDERED: Azithromycin 250 MG TABLET PO SCH (17:00)
== END 2017-02-16 17:20 | DRG 193 ==
LOC: 2ANU → SUATTDRO 15:31
PROVIDERS: ADMIT Pediatrics; ATTEND Hospitalist